=== PATIENT | male | born 1970 | race Two or more races ===

== ENCOUNTER 2018-07-29 14:08 | Observation (INO) | payer BC ==
[2018-07-29] MEDS ORDERED: NORMAL SALINE 1000 ML 1,000 ML IV ONE (14:18)
--- NOTE | 2018-07-29 14:21 | ER Document Report ---
ED Medical Screen (RME) - General Chief Complaint: Abdominal Pain Stated Complaint: ABDOMINAL PAIN Time Seen by Provider: 07/29/18 14:16 TRAVEL OUTSIDE OF THE U.S. IN LAST 30 DAYS: No - HPI Patient complains to provider of: Right lower quadrant abdominal pain Onset: Yesterday Onset/Duration: Sudden Quality of pain: Achy, Pressure, Stabbing Severity: Moderate Pain Level: 3 Associated Symptoms: Nausea Notes: 07/29/18 14:19 Patient is a 47-year-old male presenting to the emergency room for right lower quadrant pain that started yesterday evening and is associated with nausea, he denies any vomiting or diarrhea, his temperature in triage is 99.3, no history of any abdominal surgeries previously, patient drinking blue juice on arrival, advised to remain n.p.o. at this time 07/29/18 14:20 RAPID MEDICAL EVALUATION DISCLOSURE I have seen this patient as part of a Rapid Medical Evaluation and, if applicable, placed any initially appropriate orders. The patient will be seen and fully evaluated, including a full history and physical exam, by a provider (in Main ED or Fast Track) when a room becomes available. - Related Data Allergies/Adverse Reactions: No Known Allergies Allergy (Verified 07/29/18 14:16) Physical Exam - Vital signs Vitals: Temp Pulse Resp BP Pulse Ox 99.3 F 97 16 140/99 H 99 07/29/18 14:13 07/29/18 14:13 07/29/18 14:13 07/29/18 14:13 07/29/18 14:13 Course - Vital Signs Vital signs: Temp Pulse Resp BP Pulse Ox 99.3 F 97 16 140/99 H 99 07/29/18 14:13 07/29/18 14:13 07/29/18 14:13 07/29/18 14:13 07/29/18 14:13
[2018-07-29 14:55] LABS: ABSOLUTE BASOPHILS # (AUTO) 0.1 10^3/uL (0.0-0.2); ABSOLUTE EOSINOPHILS # (AUTO) 0.1 10^3/uL (0.0-0.6); ABSOLUTE LYMPHOCYTES (AUTO) 3.2 10^3/uL (0.5-4.7); ABSOLUTE MONOCYTES (AUTO) 1.3 10^3/uL (0.1-1.4); ABSOLUTE NEUT (AUTO) 13.6 10^3/uL (1.7-8.2); BASOPHILS % (AUTO) 0.5 % (0-2); EOSINOPHILS % (AUTO) 0.5 % (0-6); HEMATOCRIT 41.5 % (37.9-51.0); HEMOGLOBIN 14.3 g/dL (13.5-17.0); LYMPHOCYTES % (AUTO) 17.5 % (13-45); MEAN CORPUSCULAR HEMOGLOBIN 30.4 pg (27.0-33.4); MEAN CORPUSCULAR HGB CONC 34.6 g/dL (32.0-36.0); MEAN CORPUSCULAR VOLUME 88 fl (80-97); PLATELET COUNT 288 10^3/uL (150-450); RED BLOOD COUNT 4.71 10^6/uL (4.35-5.55); RED CELL DISTRIBUTION WIDTH 12.6 % (11.5-14.0); SEGMENTED NEUTROPHILS % (AUTO) 74.5 % (42-78); TOTAL CELLS COUNTED % (AUTO) 100 %; WHITE BLOOD COUNT 18.3 10^3/uL (4.0-10.5)
[2018-07-29 15:15] LABS: APPEARANCE,URINE CLEAR; BILIRUBIN,URINE NEGATIVE (NEGATIVE); COLOR,URINE YELLOW; GLUCOSE, URINE NEGATIVE (NEGATIVE); KETONES,URINE NEGATIVE (NEGATIVE); LEUKOCYTE ESTERASE,URINE NEGATIVE (NEGATIVE); NITRITE,URINE NEGATIVE (NEGATIVE); PROTEIN,URINE NEGATIVE (NEGATIVE); UROBILINOGEN,URINE NEGATIVE mg/dL (<2.0)
[2018-07-29 15:16] LABS: ALANINE AMINOTRANSFERASE 34 U/L (21-72); ALBUMIN 4.8 g/dL (3.5-5.0); ALKALINE PHOSPHATASE 71 U/L (38-126); ANION GAP 12 (5-19); ASPARTATE AMINO TRANSFERASE 24 U/L (17-59); BILIRUBIN,DIRECT 0.1 mg/dL (0.0-0.4); BILIRUBIN,TOTAL 0.8 mg/dL (0.2-1.3); BLOOD UREA NITROGEN 13 mg/dL (7-20); CALCIUM 9.9 mg/dL (8.4-10.2); CARBON DIOXIDE 28 mmol/L (22-30); CHLORIDE 101 mmol/L (98-107); GLUCOSE 119 mg/dL (75-110); LIPASE 105.5 U/L (23-300); POTASSIUM 4.1 mmol/L (3.6-5.0); SODIUM 140.7 mmol/L (137-145); TOTAL PROTEIN 7.6 g/dL (6.3-8.2)
--- NOTE | 2018-07-29 15:32 | ER Document Report ---
ED GI/ - General Chief Complaint: Abdominal Pain Stated Complaint: ABDOMINAL PAIN Time Seen by Provider: 07/29/18 14:16 Notes: This is a pleasant 47-year-old [place] to the emergency department for evaluation of a 1 day history of worsening abdominal pain. Pain began around the umbilicus and radiating to the right lower quadrant. Low-grade fever. Some mild nausea. Has not felt like eating. No past medical history. Not any medications. No other sick contacts at home. No prior surgeries. Last meal was at noon today where he had some noodles but did not eat very much. TRAVEL OUTSIDE OF THE [place] IN LAST 30 DAYS: No - HPI Patient complains to provider of: Abdominal pain. No: Groin pain, Hematuria, Testicular pain Onset: Yesterday Timing/Duration: Gradual Quality of pain: Throbbing Severity at maximum: Moderate Severity in ED: Moderate Pain Level: 3 - Related Data Allergies/Adverse Reactions: No Known Allergies Allergy (Verified 07/29/18 14:16) Past Medical History - General Information source: Patient - Social History Smoking Status: Current Some Day Smoker Cigarette use (# per day): Yes Frequency of alcohol use: None Drug Abuse: None Lives with: Family Family History: Reviewed & Not Pertinent Patient has suicidal ideation: No Patient has homicidal ideation: No - Medical History Medical History: Negative Renal/ Medical History: Denies: Hx Peritoneal Dialysis Surgical Hx: Negative Review of Systems - Review of Systems Notes: Constitutional: denies: Chills, Diaphoresis, Fever, Malaise, Weakness EENT: denies: Eye discharge, Blurred vision, Tearing, Double vision, Nose congestion, Nose discharge, Throat swelling, Mouth pain Cardiovascular: denies: Palpitations, Heart racing, Orthopnea, Dyspnea, Chest pain Respiratory: denies: Cough, Hurts to breathe, Wheezing, Shortness of breath Gastrointestinal: denies: Diarrhea, Black stools, bright red blood in stool. + for abd pain and nausea Genitourinary: denies: Burning, Dysuria, Discharge, Frequency, Flank pain, Hematuria Musculoskeletal: denies: Joint pain, Joint swelling, Muscle pain, Muscle stiffness, back pain Hematologic/Lymphatic: denies: Anemia, Easy bleeding, Easy bruising, Blood clots Neurological/Psychological: denies: Confusion, Dementia, Depression, Loss of consciousness Skin: No lesions, no masses, no skin breakdown, no abscesses Physical Exam - Vital signs Vitals: Temp Pulse Resp BP Pulse Ox 99.3 F 97 16 140/99 H 99 07/29/18 14:13 07/29/18 14:13 07/29/18 14:13 07/29/18 14:13 07/29/18 14:13 Interpretation: Normal - General General appearance: Appears well, Alert - HEENT Head: Normocephalic, Atraumatic Eyes: Normal Pupils: PERRL - Respiratory Respiratory status: No respiratory distress Chest status: Nontender Breath sounds: Normal Chest palpation: Normal - Cardiovascular Rhythm: Regular Heart sounds: Normal auscultation Murmur: No - Abdominal Inspection: Normal Distension: No distension Bowel sounds: Normal Tenderness: Tender, McBurney's point, Guarding, Rebound Organomegaly: No organomegaly - Back Back: Normal, Nontender - Extremities General upper extremity: Normal inspection, Nontender, Normal color, Normal ROM, Normal temperature General lower extremity: Normal inspection, Nontender, Normal color, Normal ROM, Normal temperature, Normal weight bearing. No: Sarah's sign - Neurological Neuro grossly intact: Yes Cognition: Normal Orientation: AAOx4 Parsons Coma Scale Eye Opening: Spontaneous Parsons Coma Scale Verbal: Oriented Parsons Coma Scale Motor: Obeys Commands Parsons Coma Scale Total: 15 Speech: Normal Motor strength normal: LUE, RUE, LLE, RLE Sensory: Normal - Psychological Associated symptoms: Normal affect, Normal mood - Skin Skin Temperature: Warm Skin Moisture: Dry Skin Color: Normal Course - Re-evaluation Re-evalutation: 07/29/18 15:55 Laboratory 07/29/18 07/29/18 07/29/18 14:44 14:44 14:44 WBC 18.3 H RBC 4.71 Hgb 14.3 Hct 41.5 MCV 88 MCH 30.4 MCHC 34.6 RDW 12.6 Plt Count 288 Seg Neutrophils % 74.5 Lymphocytes % 17.5 Monocytes % 7.0 Eosinophils % 0.5 Basophils % 0.5 Absolute Neutrophils 13.6 H Absolute Lymphocytes 3.2 Absolute Monocytes 1.3 Absolute Eosinophils 0.1 Absolute Basophils 0.1 Sodium 140.7 Potassium 4.1 Chloride 101 Carbon Dioxide 28 Anion Gap 12 BUN 13 Creatinine 0.86 Est GFR ( Amer) > 60 Est GFR (Non-Af Amer) > 60 Glucose 119 H Calcium 9.9 Total Bilirubin 0.8 Direct Bilirubin 0.1 Neonat Total Bilirubin Not Reportable Neonat Direct Bilirubin Not Reportable Neonat Indirect Bili Not Reportable AST 24 ALT 34 Alkaline Phosphatase 71 Total Protein 7.6 Albumin 4.8 Lipase 105.5 Urine Color YELLOW Urine Appearance CLEAR Urine pH 8.0 Ur Specific [place] 1.010 Urine Protein NEGATIVE Urine Glucose (UA) NEGATIVE Urine Ketones NEGATIVE Urine Blood NEGATIVE Urine Nitrite NEGATIVE Urine Bilirubin NEGATIVE Urine Urobilinogen NEGATIVE Ur Leukocyte Esterase NEGATIVE Urine WBC (Auto) 1 Urine Mucus (Auto) RARE Urine Ascorbic Acid NEGATIVE Abdomen/Pelvis CT 07/29/18 14:19 IMPRESSION: 1. Appendicitis. There is no evidence of abscess. 2. Questionable jejunal thickening. This may be secondary to nondistention. Is there history of inflammatory bowel disease? 07/29/18 15:57 CT scan consistent with physical exam which is concerning for acute appendici tis. Dr. Vasquez has been consulted. Starting on Zosyn, fluids, pain medication, nausea medication. Anticipate direct OR shortly. he is n.p.o. - Vital Signs Vital signs: Temp Pulse Resp BP Pulse Ox 99.3 F 97 16 140/99 H 99 07/29/18 14:13 07/29/18 14:13 07/29/18 14:13 07/29/18 14:13 07/29/18 14:13 - Laboratory Result Diagrams: 07/29/18 14:44 07/29/18 14:44 Laboratory results interpreted by me: 07/29/18 07/29/18 14:44 14:44 WBC 18.3 H Absolute Neutrophils 13.6 H Glucose 119 H Discharge - Discharge Clinical Impression: Acute appendicitis Qualifiers: Acute appendicitis type: with localized peritonitis Appendicitis gangrene pre sence: without gangrene Appendicitis perforation presence: without perforation Appendicitis abscess presence: without abscess Qualified Code(s): K35.30 - Acute appendicitis with localized peritonitis, without perforation or gangrene Condition: Good Disposition: ADMITTED OBSERVATION Admitting Provider: Surgicalist - [facility] Admitted: OR
--- NOTE | 2018-07-29 15:52 | RADIOLOGY REPORT (SQ) ---
EXAM DESCRIPTION: CT ABD/PELVIS WITH IV ONLY COMPLETED DATE/TIME: 07/29/2018 3:37 pm REASON FOR STUDY: RLQ pain COMPARISON: None. TECHNIQUE: CT scan of the abdomen and pelvis performed using helical scanning technique with dynamic intravenous contrast injection. No oral contrast. Images reviewed with lung, soft tissue, and bone windows. Reconstructed coronal and sagittal MPR images reviewed. Delayed images for evaluation of the urinary system also acquired. All images stored on PACS. All CT scanners at this facility use dose modulation, iterative reconstruction, and/or weight based d osing when appropriate to reduce radiation dose to as low as reasonably achievable (ALARA). [facility]: Dose Right [facility]: CareDose [facility]: Dose Right [facility]: Teradose 4D [facility]: SpinTheCam CONTRAST TYPE AND DOSE: contrast/concentration: Isovue 350.00 mg/ml; Total Contrast Delivered: 86.0 ml; Total Saline Delivered: 69.0 ml RENAL FUNCTION: BUN 13 creatinine 0.86 RADIATION DOSE: CT Rad equipment meets quality standard of care and radiation dose reduction techniq ues were employed. CTDIvol: NaN - NaN mGy. DLP: 0 mGy-cm.. LIMITATIONS: None. FINDINGS: LOWER CHEST: No significant findings. No nodules or infiltrates. LIVER: Normal size. No masses. No dilated ducts. SPLEEN: Normal size. No focal lesions. PANCREAS: No masses. No significant calcifications. No adjacent inflammation or peripancreatic fluid collections. Pancreatic duct not dilated. GALLBLADDER: No identified stones by CT criteria. No inflammatory changes to suggest cholecystitis. ADRENAL GLANDS: No significant masses or asymmetry. RIGHT KIDNEY AND URETER: No solid masses. No significant calcifications. No hydronephrosis or hyd roureter. LEFT KIDNEY AND URETER: No solid masses. No significant calcifications. No hydronephrosis or hydr oureter. AORTA AND VESSELS: No aneurysm. No dissection. Renal arteries, SMA, celiac without stenosis. RETROPERITONEUM: No retroperitoneal adenopathy, hemorrhage or masses. BOWEL AND PERITONEAL CAVITY: There is questionable thickening of the wall of segments of jejunum. Th is may be secondary to nondistention. There is no evidence of bowel obstruction. No obvious bowel m ass is seen. APPENDIX: There is thickening of the appendix to about 11 mm. There is mild periappendiceal strandin g. There is no abscess. PELVIS: No mass. No free fluid. Normal bladder. ABDOMINAL WALL: No masses. No hernias. BONES: No significant or acute findings. OTHER: No other significant finding. IMPRESSION: 1. Appendicitis. There is no evidence of abscess. 2. Questionable jejunal thickening. This may be secondary to nondistention. Is there history of in flammatory bowel disease? TECHNICAL DOCUMENTATION: JOB ID: [id number] Quality ID # [id number]: Final reports with documentation of one or more dose reduction techniques (e.g., Au tomated exposure control, adjustment of the mA and/or kV according to patient size, use of iterative reconstruction technique) 2010 [employer]- All Rights Reserved Reading location - IP/workstation name: [email or web address]
[2018-07-29] MEDS ORDERED: ONDANSETRON HCL INJ/PF 4 MG/2 ML SDV IV ONE (15:56)
[2018-07-29] MEDS ORDERED: MORPHINE SULFATE 10 MG/ML INJ IV ONE (15:56)
[2018-07-29] MEDS ORDERED: PIPERACILLIN/TAZOBACTAM 3.375 GM VIAL IV ONE (15:56)
--- NOTE | 2018-07-29 16:30 | PDOC H&P ---
History of Present Illness Admission Date/PCP: 07/29/18 Patient complains of: abdominal pains History of Present Illness: KY ELLIOTT is a 47 year old male who stated c/o abdominal pains yesterday afternoon associated with low grade fever, nausea, and anorexia. Came to EDtoday and CT scan done which showed acute appendicitis. Pains more localized to RLQ this am. Past Surgical History Past Surgical History: Reports: Other - circumcision Social History Lives with: Family Smoking Status: Current Some Day Smoker Family History Family History: Reviewed & Not Pertinent Parental Family History Reviewed: Yes Children Family History Reviewed: No Sibling(s) Family History Reviewed.: No Medication/Allergy Allergies/Adverse Reactions: No Known Allergies Allergy (Verified 07/29/18 14:16) Review of Systems Constitutional: PRESENT: as per HPI Eyes: PRESENT: other - no visual/hearing changes Cardiovascular: PRESENT: other - no chest pains/cough Gastrointestinal: PRESENT: abdominal pain, nausea Genitourinary: PRESENT: other - no dysuria Musculoskeletal: PRESENT: other - injured left arm and had numbness but now resolved Hematologic/Lymphatic: PRESENT: other - no easy bruisability Physical Exam Vital Signs: Temp Pulse Resp BP Pulse Ox 99.3 F 97 16 140/99 H 99 07/29/18 14:13 07/29/18 14:13 07/29/18 14:13 07/29/18 14:13 07/29/18 14:13 Intake & Output 07/28/18 07/29/18 07/30/18 06:59 06:59 06:59 Weight 75.4 kg General appearance: PRESENT: mild distress Head exam: PRESENT: atraumatic Eye exam: PRESENT: conjunctiva pink Mouth exam: PRESENT: dry mucosa Neck exam: PRESENT: full ROM Respiratory exam: PRESENT: clear to auscultation betty Cardiovascular exam: PRESENT: RRR Pulses: PRESENT: normal radial pulses Vascular exam: PRESENT: normal capillary refill GI/Abdominal exam: PRESENT: rebound, tenderness - RLQ Rectal exam: PRESENT: deferred Extremities exam: PRESENT: full ROM Musculoskeletal exam: PRESENT: ambulatory Neurological exam: PRESENT: alert, oriented to person, oriented to place, oriented to time, oriented to situation Psychiatric exam: PRESENT: appropriate affect Skin exam: PRESENT: normal color, warm Results Laboratory Results: 07/29/18 14:44 07/29/18 14:44 07/29/18 07/29/18 07/29/18 14:44 14:44 14:44 WBC 18.3 H RBC 4.71 Hgb 14.3 Hct 41.5 MCV 88 MCH 30.4 MCHC 34.6 RDW 12.6 Plt Count 288 Seg Neutrophils % 74.5 Lymphocytes % 17.5 Monocytes % 7.0 Eosinophils % 0.5 Basophils % 0.5 Absolute Neutrophils 13.6 H Absolute Lymphocytes 3.2 Absolute Monocytes 1.3 Absolute Eosinophils 0.1 Absolute Basophils 0.1 Sodium 140.7 Potassium 4.1 Chloride 101 Carbon Dioxide 28 Anion Gap 12 BUN 13 Creatinine 0.86 Est GFR ( Amer) > 60 Est GFR (Non-Af Amer) > 60 Glucose 119 H Calcium 9.9 Total Bilirubin 0.8 AST 24 ALT 34 Alkaline Phosphatase 71 Total Protein 7.6 Albumin 4.8 Lipase 105.5 Urine Color YELLOW Urine Appearance CLEAR Urine pH 8.0 Ur Specific [place] 1.010 Urine Protein NEGATIVE Urine Glucose (UA) NEGATIVE Urine Ketones NEGATIVE Urine Blood NEGATIVE Urine Nitrite NEGATIVE Ur Leukocyte Esterase NEGATIVE Urine WBC (Auto) 1 Impressions: Abdomen/Pelvis CT 07/29/18 14:19 IMPRESSION: 1. Appendicitis. There is no evidence of abscess. 2. Questionable jejunal thickening. This may be secondary to nondistention. Is there history of inflammatory bowel disease? Assessment & Plan - Diagnosis (1) Acute appendicitis Qualifiers: Acute appendicitis type: with localized peritonitis Appendicitis gangrene presence: without gangrene Appendicitis perforation presence: without perforation Appendicitis abscess presence: without abscess Qualified Code(s): K35.30 - Acute appendicitis with localized peritonitis, without perforation or gangrene Is this a current diagnosis for this admission?: Yes - Time Time Spent: 30 to 50 Minutes - Inpatient Certification Medical Necessity: Need For IV Fluids, Need for Pain Control, Need for IV Antibiotics, Need for Surgery, Risk of Complication if Not Cared For in Hospital - Plan Summary Plan Summary: Hydrate IV antibiotics Lap appendectomy
[2018-07-29] MEDS ORDERED: HYDROMORPHONE HCL INJ/PF 2 MG/ML AMPULE ONE (16:42)
[2018-07-29] MEDS ORDERED: FENTANYL CITRATE INJ/PF 100 MCG/2 ML AMPUL ONE (16:43)
[2018-07-29] MEDS ORDERED: PROPOFOL INJ 200 MG/20 ML VIAL IV ONE (16:43)
[2018-07-29] MEDS ORDERED: MIDAZOLAM 2 MG/2 ML INJ ONE (16:43)
[2018-07-29] MEDS ORDERED: ACETAMINOPHEN 1,000 MG/100 ML RTUPB IV ONE (16:43)
[2018-07-29] MEDS ORDERED: BUPIVACAINE HCL 0.25 % INJ/PF (2.5 MG/1 ML) 30 ML VIAL ONE (16:47)
[2018-07-29] MEDS ORDERED: OXYCODONE-ACETAMINOPHEN 5-325 MG TABLET PO PRN ×2 (17:34)
[2018-07-29] MEDS ORDERED: MEPERIDINE HCL/PF INJ 25 MG/1 ML DISP.SYRIN IV PRN (17:34)
[2018-07-29] MEDS ORDERED: DIPHENHYDRAMINE HCL 50 MG/ML VIAL IV PRN (17:34)
[2018-07-29] MEDS ORDERED: ONDANSETRON HCL INJ/PF 4 MG/2 ML SDV IV PRN (17:34)
[2018-07-29] MEDS ORDERED: PROMETHAZINE HCL INJ 25 MG/1 ML VIAL IV PRN ×2 (17:34)
[2018-07-29] MEDS ORDERED: FENTANYL CITRATE INJ/PF 100 MCG/2 ML AMPUL IV PRN ×3 (17:34)
[2018-07-29] MEDS ORDERED: NORMAL SALINE 500 ML IV ONE (19:04)
[2018-07-29] MEDS ORDERED: PIPERACILLIN/TAZOBACTAM 3.375 GM VIAL IV SCH (19:15)
[2018-07-29] MEDS ORDERED: RINGERS SOLUTION,LACTATED 1,000 ML IV ONE (20:45)
[2018-07-29] MEDS ORDERED: NORMAL SALINE 1000 ML 1,000 ML IV PRN (22:00)
--- NOTE | 2018-07-29 23:42 | OPERATIVE REPORT E ---
Operative Report NAME: KY ELLIOTT : 1970 AGE: 47Y DATE OF SURGERY: 07/29/2018 ROOM: 210 PREOPERATIVE DIAGNOSIS: ACUTE APPENDICITIS. POSTOPERATIVE DIAGNOSIS: ACUTE APPENDICITIS. OPERATION: Laparoscopic appendectomy. SURGEON: LISA JAMISON M.D. ANESTHESIA: General. INDICATIONS: This is a 47-year-old male complaining of abdominal pain since yesterday. The pain localized in the right lower quadrant and a CAT scan showed acute appendicitis. His white count is elevated and markedly tender in the right lower quadrant *------*. He was then taken to the operating room where laparoscopic appendectomy was performed. PROCEDURE: After adequate general anesthesia, patient was placed in supine position, and the abdomen prepped and draped in the usual sterile fashion. Appropriate timeout was called. Next, an infraumbilical incision was made and the fascia identified and grasped with Zafar clamps on each side and divided in the middle. A suture of 0 Vicryl was placed on each side of the Zafar clamp and the clamps released. With the digital palpation through the fascia into the abdominal cavity, no adhesions were noted. A Tamera trocar was inserted through the fascia to the abdominal cavity and CO2 insufflated to a pressure of 15 mmHg. Two other trocars were placed; a 5-mm in the suprapubic and a 12-mm in the left lower quadrant. The abdominal cavity was then inspected. There were some adhesions noted close to the area of the appendix and this was partially lysed with Harmonic angelito. The appendix was noted to be inflamed partially attached to the abdominal wall. The tip was then grasped and blunt dissection as well as with the use of Harmonic angelito was done. The mesoappendix was subsequently cauterized and divided with the use of the Harmonic angelito. The base of the appendix appeared to be not inflamed. With the use of 45 mm BEBA blue-load stapler, the base of the appendix was subsequently stapled and divided. The appendix was then placed in an Endo bag and pulled out through the umbilical port. Trocars were put back. Next, the stump was inspected and no active bleeding noted. It was then irrigated. There was some trace of small amount of blood on the stump and this was cauterized gently with right angle clamp. Adequate hemostasis was noted. No other obvious abnormality noted in the abdominal cavity. The trocars were then all removed and CO2 allowed to come out through the trocar sites. The infraumbilical fascial was then closed with [id number] using 0 Vicryl and the 2 stay sutures tied together over the fascial defect. The fascia was injected with Marcaine 0.5% with epinephrine about 10 mL. All of the subcutaneous incisions were also injected with Marcaine. All of the skin incisions were then closed with running subcuticular using 5-0 Vicryl undyed. Steri-Strips placed over the operative sites. Needle, instrument and sponge counts were all correct. Estimated blood loss was about 5 mL. Patient then brought to the recovery room, extubated in satisfactory condition. DICTATING PHYSICIAN: LISA JAMISON M.D. [id number] Y#: [id number] ID: [id number] JOB#: [id number] ACCT: [id number] cc:LISA JAMISON M.D. >
[2018-07-30] MEDS: KETOROLAC TROMETHAMINE INJ/PF 30 MG/1 ML SDV IV SCH ×3 (00:13→12:45)
[2018-07-30] MEDS ORDERED: LIDOCAINE 2% INJ-PF (20 MG/ML) 2 ML AMPUL ONE (12:52)
[2018-07-30] MEDS ORDERED: NEOSTIGMINE METHYLSULFATE 10 MG/10 ML VIAL ONE (12:52)
[2018-07-30] MEDS ORDERED: METOCLOPRAMIDE HCL INJ/PF 10 MG/2 ML SDV ONE (12:52)
[2018-07-30] MEDS ORDERED: DEXAMETHASONE SOD PHOSPHATE INJ 4 MG/1 ML VIAL ONE (12:52)
[2018-07-30] MEDS ORDERED: ROCURONIUM BROMIDE INJ 50 MG/5 ML VIAL IV ONE (12:52)
[2018-07-30] MEDS ORDERED: GLYCOPYRROLATE 1 MG/5 ML SYRINGE ONE (12:52)
[2018-07-30] MEDS ORDERED: ONDANSETRON HCL INJ/PF 4 MG/2 ML SDV ONE (12:52)
[2018-07-30] MEDS ORDERED: SUCCINYLCHOLINE CHLORIDE INJ 200 MG/10 ML VIAL ONE (12:52)
[2018-07-30] MEDS ORDERED: KETOROLAC TROMETHAMINE 60 MG/2 ML SDV ONE (12:52)
--- NOTE | 2018-07-30 13:52 | DISCHARGE SUMMARY E ---
Discharge Summary NAME: KY ELLIOTT : 1970 AGE: 47Y ADMITTED: 07/29/2018 DISCHARGED: FINAL DIAGNOSIS: Acute appendicitis. PROCEDURE DONE: Laparoscopic appendectomy, 07/29/2018. SURGEON: Dr. Kaleb Vasquez [facility] COURSE: This is a 47-year-old male, complained of abdominal pains since the night prior to admission. The patient had a CAT scan of the abdomen, which was compatible with acute appendicitis. His white count was elevated to 18.3 and markedly tender in the right lower quadrant. He then underwent laparoscopic appendectomy for acute appendicitis on 07/29/2017. On 07/30/2018 patient able to tolerate soft diet well and pain is tolerable with Toradol. The patient was then discharged improved on 07/30/2018 with above final diagnosis. Patient to be followed up in the surgical clinic in about 10 days. A note was given to the patient to go back to work in about 1 week. Also given a prescription for Toradol 10 mg p.o. q.8 hours p.r.n. for pain. DICTATING PHYSICIAN: KALEB VASQUEZ M.D. [id number] PHY#: [id number] ID: [id number] JOB#: [id number] ACCT: [id number] cc:KALEB VASQUEZ M.D. [facility],
[2018-07-30 13:55] VITALS: BP 147/89
== END 2018-07-30 14:38 | disposition home or self-care (01) ==
LOC: OROUT 14:08 → EH 16:24 → 2N 20:00
PROVIDERS: ATTEND Surgery
PROC: 0DTJ4ZZ Resection of Appendix, Percutaneous Endoscopic Approach (ICD-10-PCS; principal; 2018-07-29 16:30)
DX: K35.33 Acute appendicitis with perforation, localized peritonitis, and gangrene, with abscess (principal); F17.210 Nicotine dependence, cigarettes, uncomplicated
CPT/HCPCS: 44970; 36415; 83690; 85025; 80053; 81001; 88304 ×2; 74177; G0378 ×2; J2250; J3490 ×3; J1100; J1885 ×2; J2765; J1170; J0330; J2405; J7030 ×2; J2704; J0131; 840; J3010

== ENCOUNTER 2019-11-16 12:44 | Emergency (ER) | payer BC ==
[2019-11-16 12:51] VITALS: BP 159/92
[2019-11-16] MEDS ORDERED: IBUPROFEN 600 MG TABLET PO ONE (13:13)
--- NOTE | 2019-11-16 13:13 | ER Document Report ---
HPI - HPI Patient complains to provider of: Right shoulder pain Time Seen by Provider: 11/16/19 13:08 Onset/Duration: Gradual Pain Level: 1 Context: 49-year-old male with no previous medical problems presents the emergency room complaining of right shoulder pain for the past week. States it started bothering him after he was picking up rocks and moving them while doing yard work at home. Denies any previous trauma or injury to his shoulder. He has not been taking any medication for the pain. Patient is right-handed. Denies chest pain, shortness of breath, difficulty breathing. Associated Symptoms: None Exacerbated by: Movement Relieved by: Remaining still Similar symptoms previously: No Recently seen / treated by doctor: No - ROS ROS below otherwise negative: Yes - CONSTITUTIONAL Constitutional: DENIES: Fever, Chills - NEURO Neurology: DENIES: Weakness - CARDIOVASCULAR Cardiovascular: DENIES: Chest pain - RESPIRATORY Respiratory: DENIES: Trouble Breathing - MUSCULOSKELETAL Musculoskeletal: REPORTS: Extremity pain - DERM Skin Color: Normal Skin Problems: None Past Medical History - General Information source: Patient - Social History Smoking Status: Never Smoker Frequency of alcohol use: Occasional Drug Abuse: None Family History: Reviewed & Not Pertinent Patient has homicidal ideation: No Renal/ Medical History: Denies: Hx Peritoneal Dialysis Past Surgical History: Reports: Other - circumcision Vertical Provider Document - CONSTITUTIONAL Agree With Documented VS: Yes Exam Limitations: No Limitations General Appearance: WD/WN, Mild Distress - INFECTION CONTROL TRAVEL OUTSIDE OF THE [place] IN LAST 30 DAYS: No - HEENT HEENT: Atraumatic, Normocephalic - NECK Neck: Normal Inspection, Supple - RESPIRATORY Respiratory: Breath Sounds Normal, No Respiratory Distress, Chest Non-Tender. negative: Rales, Rhonchi, Wheezing - CARDIOVASCULAR Cardiovascular: Regular Rate, Regular Rhythm, No Murmur. negative: Tachycardia, Bradycardia - BACK Back: Normal Inspection - MUSCULOSKELETAL/EXTREMETIES Musculoskeletal/Extremeties: FROM, Tender - Tender to palpation to right AC joint full range of motion with flexion, extension, internal and external rotation to the right shoulder. Notes: Negative impingement. No obvious deformity noted. - NEURO Level of Consciousness: Awake, Alert, Appropriate - DERM Integumentary: Warm, Dry Course - Re-evaluation Re-evalutation: 11/16/19 14:02 Decrease pain. Reviewed x-ray results with patient. Counseled to take Tylenol and Motrin as needed for pain. Outpatient follow-up with orthopedics as discussed. Given strict return to the emergency room guidelines. Return for any new or worsening symptoms. All questions were answered. Patient verbalized understanding and agrees with plan of care. - Vital Signs Vital signs: Temp Pulse Resp BP Pulse Ox 98.3 F 76 16 159/92 H 97 11/16/19 13:00 11/16/19 12:49 11/16/19 12:49 11/16/19 12:49 11/16/19 12:49 - Diagnostic Test Radiology reviewed: Reports reviewed Discharge - Discharge Clinical Impression: Right shoulder pain Qualifiers: Chronicity: acute Qualified Code(s): M25.511 - Pain in right shoulder Condition: Stable Disposition: HOME, SELF-CARE Instructions: Exercise Program for the Shoulder ([facility]), Shoulder Injury ([facility]) Additional Instructions: Tylenol and/or Motrin as needed for pain. Outpatient follow-up with orthopedics as discussed. You were provided with the on-call physician. Return for any new or worsening symptoms. Prescriptions: Meloxicam [Mobic 7.5 Mg Tablet] 7.5 mg PO DAILY 14 Days #14 tablet Referrals: SADIE HARRELL MD [Primary Care Provider] - Follow up as needed HALLE RUTH DO [ACTIVE STAFF] - Follow up in 3-5 days (Call for outpatient follow-up appointment if not improving in 2 to 3 days.)
--- NOTE | 2019-11-16 13:33 | RADIOLOGY REPORT (SQ) ---
EXAM DESCRIPTION: SHOULDER RIGHT 2 OR MORE VIEWS IMAGES COMPLETED DATE/TIME: 11/16/2019 1:25 pm REASON FOR STUDY: pain COMPARISON: None. NUMBER OF VIEWS: Three views. TECHNIQUE: Internal rotation, external rotation, and Y view images acquired of the right shoulder. LIMITATIONS: None. FINDINGS: MINERALIZATION: Normal. BONES: No acute fracture. No worrisome bone lesions. JOINTS: No dislocation. VISUALIZED LUNGS AND RIBS: No pneumothorax. No rib fracture. SOFT TISSUES: No radiopaque foreign body. OTHER: No other significant finding. IMPRESSION: NEGATIVE STUDY OF THE RIGHT SHOULDER. NO RADIOGRAPHIC EVIDENCE OF ACUTE INJURY. TECHNICAL DOCUMENTATION: JOB ID: [id number] 2010 [employer]- All Rights Reserved Reading location - IP/workstation name: [email or web address]
== END 2019-11-16 14:08 | disposition home or self-care (01) ==
LOC: ER 12:44
DX: M25.511 Pain in right shoulder (principal)
CPT/HCPCS: 99283

== ENCOUNTER → 2020-01-06 | Day surgery (SDC) | payer BC ==
--- NOTE | 2020-01-06 11:21 | RADIOLOGY REPORT (SQ) ---
EXAM DESCRIPTION: ARTHRO SHOULDER INJECTION; FLUORO/NEEDLE PLACEMENT IMAGES COMPLETED DATE/TIME: 01/06/2020 9:25 am REASON FOR STUDY: S43.401S UNSPECIFIED SPRAIN OF RIGHT SHOULDER JOINT, SEQUELA S43.401S UNSPECIFIED SPRAIN OF RIGHT SHOULDER JOINT, SEQUELA COMPARISON: None. FLUOROSCOPY TIME: 9 seconds of fluoroscopy was used. 1 images saved to PACS. LIMITATIONS: None. PROCEDURE: Procedure, risks, benefits and alternatives explained to patient who then gave written co nsent. The right shoulder was marked and a time out was called for correct procedure verification. P osterior entry site marked using fluoroscopic guidance. Shoulder prepped and draped using sterile te chnique. Local anesthesia achieved using 1% lidocaine injection. Hypodermic needle introduced into the joint space under direct fluoroscopic visualization. Non-ionic contrast instilled to confirm intr a-articular position. Dilute gadolinium solution then injected. Needle removed and entry site covere d with sterile bandage. No immediate complications noted. TECHNIQUE: Digital images acquired during fluoroscopy and stored on PACS. Patient immediately take n to the MR suite for additional imaging. INJECTION LOCATION: Posterior right shoulder. CONTRAST TYPE AND AMOUNT: 12 mL Prohance/Saline mixture. IMPRESSION: SUCCESSFUL NEEDLE PLACEMENT AND INJECTION FOR RIGHT SHOULDER MR ARTHROGRAM USING POSTERI OR APPROACH. COMMENT: Quality ID 145: Final reports for procedures using fluoroscopy that document radiation exp osure indices, or exposure time and number of fluorographic images (if radiation exposure indices are not available) TECHNICAL DOCUMENTATION: JOB ID: [id number] 2010 [employer]- All Rights Reserved Reading location - IP/workstation name: [email or web address] [id number]
--- NOTE | 2020-01-06 11:21 | RADIOLOGY REPORT (SQ) ---
EXAM DESCRIPTION: ARTHRO SHOULDER INJECTION; FLUORO/NEEDLE PLACEMENT IMAGES COMPLETED DATE/TIME: 01/06/2020 9:25 am REASON FOR STUDY: S43.401S UNSPECIFIED SPRAIN OF RIGHT SHOULDER JOINT, SEQUELA S43.401S UNSPECIFIED SPRAIN OF RIGHT SHOULDER JOINT, SEQUELA COMPARISON: None. FLUOROSCOPY TIME: 9 seconds of fluoroscopy was used. 1 images saved to PACS. LIMITATIONS: None. PROCEDURE: Procedure, risks, benefits and alternatives explained to patient who then gave written co nsent. The right shoulder was marked and a time out was called for correct procedure verification. P osterior entry site marked using fluoroscopic guidance. Shoulder prepped and draped using sterile te chnique. Local anesthesia achieved using 1% lidocaine injection. Hypodermic needle introduced into the joint space under direct fluoroscopic visualization. Non-ionic contrast instilled to confirm intr a-articular position. Dilute gadolinium solution then injected. Needle removed and entry site covere d with sterile bandage. No immediate complications noted. TECHNIQUE: Digital images acquired during fluoroscopy and stored on PACS. Patient immediately take n to the MR suite for additional imaging. INJECTION LOCATION: Posterior right shoulder. CONTRAST TYPE AND AMOUNT: 12 mL Prohance/Saline mixture. IMPRESSION: SUCCESSFUL NEEDLE PLACEMENT AND INJECTION FOR RIGHT SHOULDER MR ARTHROGRAM USING POSTERI OR APPROACH. COMMENT: Quality ID 145: Final reports for procedures using fluoroscopy that document radiation exp osure indices, or exposure time and number of fluorographic images (if radiation exposure indices are not available) TECHNICAL DOCUMENTATION: JOB ID: [id number] 2010 [employer]- All Rights Reserved Reading location - IP/workstation name: [email or web address] [id number]
--- NOTE | 2020-01-06 14:00 | RADIOLOGY REPORT (SQ) ---
EXAM DESCRIPTION: MRI RT UPPER JOINT WITH IMAGES COMPLETED DATE/TIME: 01/06/2020 10:00 am REASON FOR STUDY: S43.401S UNSPECIFIED SPRAIN OF RIGHT SHOULDER JOINT, SEQUELA S43.401S UNSPECIFIED SPRAIN OF RIGHT SHOULDER JOINT, SEQUELA COMPARISON: ARTHROGRAM SAME DATE, RIGHT SHOULDER FILMS 11/16/2019 TECHNIQUE: Post arthrogram right shoulder images acquired and stored on PACS. Oblique coronal, obliq ue sagittal, and axial imaging to include fat sensitive sequences as T1, water sensitive sequences as FST2/STIR, and contrast sensitive sequences as FST1. Aber view obtained. LIMITATIONS: None. FINDINGS: JOINT DISTENTION: Adequate distention for interpretation. No leakage of contrast into the subacromial/subdeltoid bursa BONE MARROW AND CORTEX: Normal. No significant osteophytes. No edema or defects. AC JOINT: Type II acromion. Mild to moderate AC joint hypertrophy, narrowing the subacromial space on sagittal images 9 through 12 GLENOHUMERAL JOINT: No subluxation or dislocation. No focal chondral defects or reactive bone changes . ROTATOR CUFF: Anterior half of the supraspinatus tendon is markedly hand and high in signal from tend inopathy and partial-thickness undersurface tear. Adjacent fluid in the subacromial/subdeltoid bursa without gadolinium. Mild undersurface tendinopathy distal infraspinatus tendon. Subscapularis inta ct. LABRUM AND BICEPS LABRAL COMPLEX: Normal signal in the rotator interval without tear of the superior glenohumeral ligament. Superior labrum, intra-articular long head biceps intact. Distal biceps in no rmal anatomic location in bicipital groove. No paralabral cysts. INFERIOR LABRAL COMPLEX: Bony glenoid and labrum intact. IGHL intact without thickening or tear. No p aralabral cysts. ADJACENT SOFT TISSUES: No masses or nodes. OTHER: No other significant finding. IMPRESSION: Tendinopathy with partial-thickness undersurface tear anterior half supraspinatus tendon Fluid in the subacromial/subdeltoid bursa without gadolinium from bursitis TECHNICAL DOCUMENTATION: JOB ID: [id number] 2010 [employer]- All Rights Reserved Reading location - IP/workstation name: [id number]
== END ==
LOC: RAD 08:50
PROVIDERS: ATTEND Orthopaedic Surgery
DX: S43.401S Unspecified sprain of right shoulder joint, sequela (principal); X58.XXXS Exposure to other specified factors, sequela
CPT/HCPCS: 73222; 77002; 23350; A9576